=== PATIENT | male | born 1960 | race Caucasian/White ===

== ENCOUNTER 2019-01-17 17:54 | Inpatient (IN) | payer OTHER ==
[~2019-01-17] VITALS: Ht 165.1 cm; Wt 68.7 kg
[~2019-01-17 17:54] MED LIST: SALBUTAMOL INH
[2019-01-17 18:09] VITALS: Ht 165.1 cm; Wt 68.7 kg
--- NOTE | 2019-01-17 18:13 | NUR ---
PT SENT TO LOBBY TO AWAIT ROOM. NO S/S OF DISTRESS. PT IS A/O AMBULATES WITH STEADY GAIT. RESPTIATIONS ARE E/U.
--- NOTE | 2019-01-17 19:09 | NUR ---
PT AAOX4, RESPIRATIONS EVEN AND UNLABORED, NO S/S OF DISTRESS NOTED. PT REPORTS BEING SEEN AT URGENT CARE TODAY AND BEING TOLD TO DUE TO HTN AND BILATERAL LOWER EXTREMITY EDEMA. +2 PITTING EDEMA NOTED TO BILATERAL LOWER EXTREMITIES WITH POSITIVE SENSATION, MOVEMENT AND PEDAL PULSES.
--- NOTE | 2019-01-17 20:15 | NUR ---
PT INSTRUCTED TO GIVE CLEAN CATCH URINE SAMPLE. PT AMBULATED TO AND FROM RESTROOM WITH STEADY GAIT.
[2019-01-17 20:30] LABS: BASOPHIL % 0.9 % (0-2); PLATELET COUNT 283 x10^3mcL (130-400); RED CELL DISTRIBUTION WIDTH 13.4 % (11.5-14.5)
[2019-01-17 20:32] LABS: CALCIUM 8.3 mg/dL (8.5-10.1); CARBON DIOXIDE 28.8 mmol/L (21-32); CHLORIDE SERUM 104 mmol/L (98-107); CREATININE SERUM 1.3 mg/dL (0.7-1.3); GFR1 > 60 mL/min; GLUCOSE SERUM 102 mg/dL (74-106); POTASSIUM SERUM 3.7 mmol/L (3.5-5.1); SODIUM SERUM 139 mmol/L (136-145)
[2019-01-17 20:36] LABS: ALKALINE PHOSPHATASE 70 U/L (46-116); ALT/SGPT 52 U/L (16-63); AST/SGOT 29 U/L (15-37); BILIRUBIN TOTAL 0.5 mg/dL (0.20-1.00); LIPASE 96 IU/L (73-393); TRIGLYCERIDES 98 mg/dL (<150)
[2019-01-17 20:37] LABS: ALBUMIN 2.3 g/dL (3.4-5.0); CHOLESTEROL 289 mg/dL (<200); CHOLESTEROL/HDL RATIO 3.9; HDL CHOLESTEROL 74 mg/dL (40-60); TOTAL PROTEIN, SERUM 5.7 g/dL (6.4-8.2)
[2019-01-17 20:47] LABS: T3 TOTAL 1.08 ng/mL
[2019-01-17 21:01] LABS: microscopic required? YES; urine erythrocyte 3+ (NEGATIVE)
[2019-01-17 21:05] LABS: FREE T4 0.97 ng/dL (0.76-1.46); FREE THYROXINE INDEX 2.2 ug/dL (1.4-4.5); T4(THYROXINE) 6.2 ug/dL (4.7-13.3)
--- NOTE | 2019-01-17 21:13 | NUR ---
PT SITTING UP IN BED, NO S/S OF DISTRESS NOTED, PT TALKING WITH FAMILY AT BEDSIDE. PT DENIES PAIN, DIZZINESS AT THIS TIME.
--- NOTE | 2019-01-17 23:43 | NUR ---
PT SITTING UP IN BED, NO S/S OF DISTRESS NOTED. PT REPORTS PRESSURE IN LOWER EXTREMETIES HAS SUBSIDED. PT DENIES PAIN AT THIS TIME.
[2019-01-18] VITALS (7 sets, daily range): BP systolic 119–159; BP diastolic 81–104
--- NOTE | 2019-01-18 00:53 | NUR ---
REPORT GIVEN TO RIAZ RESTREPO TO ASSUME CARE
--- NOTE | 2019-01-18 01:21 | NUR ---
RECEIVED PT FROM ED VIA NAIDA. ORIENTED PT TO ROOM AND SURROUNDINGS. IV NOTED TO RFA PATENT AND INTACT. TELE 30 PLACED ON PT READING NSR. INSTRUCTED PT ON THE USE OF CALL LIGHT FOR ASSISTANCE. ENDORSED PT TO PRIMARY NURSE LAURO
--- NOTE | 2019-01-18 01:29 | NUR ---
RECEIVED PT VIA HAIDER. A&OX4. ABLE TO FOLLOW COMMANDS. SOMALI SPEAKING BUT DAUGHTER AT BEDSIDE TO TRANSLATE. PERRL. DENIES HEADACHE, SOB, PAIN, CP, N/V, OR ABD PAIN AT THIS TIME. BREATHING E/U. ON ROOM AIR. CLEAR LUNG SOUNDS AUSCULTATED. NO SIGNS OF RESP DISTRESS NOTED. VS = 159/104 (113), 71 HR, 98% O2, 18 RR. ABD IS SOFT AND ROUNDED. ACTIVE BOWEL SOUNDS PRESENT. MOD PULSES TO BUE AND BLE. CAP REFILL <3 SEC TO BUE AND BLE. SKIN IS WARM/DRY TO TOUCH, STERET/BROWN IN COLOR. +1 EDEMA NOTED TO BLE. PIV TO R FOREARM INTACT, PORT PATENT, SALINE LOCKED, DRESSING CDI. SKIN INTACT, NO OPEN WOUNDS NOTED. AMBULATORY AND INDEPENDENT. INSTRUCTED TO USE CALL LIGHT IF NEED OF ASSISTANCE, X3 SIDE RAILS UP, BED IN LOWEST POSITION. WILL RESUME CARE.
--- NOTE | 2019-01-18 02:46 | NUR ---
PT RESTING BUT AROUSABLE AND COMFORTABLE. BREATHING E/U. NO SIGNS OF RESP DISTRESS NOTED. NO ACUTE CHANGES NOTED.
--- NOTE | 2019-01-18 06:11 | NUR ---
PT AWAKE, ALERT, AND ORIENTED X4. ABLE TO FOLLOW COMMANDS. DENIES HEADACHE. BREATHING E/U. NO SIGNS OF RESP DISTRESS NOTED. SKIN WARM/DRY, STREET/BROWN IN COLOR. +1 EDEMA TO BLE REMAINS. CAP REFILL <3 SEC. MOD PULSES TO BUE AND BLE. DENIES SOB, CP, ABD PAIN, N/V. X3 SIDE RAILS UP, CALL LIGHT WITHIN REACH, BED IN LOWEST POSITION. WILL ENDORSE CARE TO ONCOMING RN.
--- NOTE | 2019-01-18 07:10 | NUR ---
RECEIVED PT FROM DAYANA RN. PT AA/OX4. EASILY AROUSABLE TO VERBAL STIMULI. NO S/S OF ACUTE DISTRESS. DENIES SOB AT THIS TIME. LUNG SOUNDS DIMINISHED BLL ON ROOM AIR. RR EVEN/UNLABORED. CHEST EXPANSION SYMMETRICAL. DENIES CHEST PAIN. IV WNL TO RFA, SALINE LOCKED. PATENT AND FLUSHES WELL. DENIES PAIN. CALM/COOPERATIVE. SPEAKS GREEK. SPEECH CLEAR. NO PALMER. NO DIZZINESS. NO N/V. BLE ELEVATED W/ PILLOW. BED IN LOW POSITION. CALL LIGHT WITHIN REACH. INSTRUCTED TO USE CALL LIGHT TO CALL FOR ASSISTANCE PRN. VERBALIZED UNDERSTANDING. SIDE RAILS UP X2. AT BEDSIDE. WILL CONTINUE TO MONITOR.
[2019-01-18 10:20] LABS: CREATININE UR 114.7 mg/dL
--- NOTE | 2019-01-18 12:39 | NUR ---
24 HOUR URINE CATCH STARTED PER PHYSICIAN ORDER. PT EDUCATED ON PURPOSE AND COLLECTING URINE FOR 24HOURS. FAMILY AT BEDSIDE. PT AND FAMILY MEMBER VERBALIZED UNDERSTANDING. PT AA/OX4. NO S/S OF ACUTE DISTRESS. NO CHEST PAIN. NO SOB ON ROOM AIR. CALM/COOPERATIVE. IV WNL, SALINE LOCKED. BED IN LOW POSITION. CALL LIGHT WITHIN REACH. WILL CONTINUE TO MONITOR.
--- NOTE | 2019-01-18 17:30 | NUR ---
24 HOUR PROTEIN/CREA URINE CATCH STARTED
--- NOTE | 2019-01-18 18:52 | NUR ---
PT LAYING IN BED. AA/OX4. NO S/S OF ACUTE DISTRESS. DENIES PAIN. DENIES SOB ON ROOM AIR. 24HR URINE CATCH IN PLACE, PT VERBALIZED UNDERSTANDING. NO CHEST PAIN. CALM/COOPERATIVE. IV WNL, SALINE LOCKED. BED IN LOW POSITION. CALL LIGHT WITHIN REACH. WILL CONTINUE TO MONITOR.
--- NOTE | 2019-01-18 19:16 | NUR ---
AWAKE AND ALERT, ORIENTED TO NAME, PLACE, TIME AND SITUATION. SPEECH CLEAR AND APPROPRIATE. BREATHING EVEN AND UNLABORED ON ROOM AIR, DENIES HAVING SHORTNESS OF BREATH AT THIS TIME. LUNG SOUNDS DIMINISHED TO BASES. SINUS RHYTHM ON TELE. ON 24 HOUR COLLECTION. PT VERBALIZED UNDERSTANDING TO VOID TO URINAL AND CALL NURSE. DENIES HAVING PAIN.
--- NOTE | 2019-01-18 23:44 | NUR ---
EYES CLOSED, BREATHING UNLABORED, EASILY AWAKENED. DUE CLONIDINE TABLET ADMINISTERED PO.
--- NOTE | 2019-01-19 00:33 | NUR ---
EYES CLOSED, BREATHING UNLABORED ON ROOM AIR. CALL LIGHT WITHIN EASY REACH. AT BEDSIDE, STAYING THE NIGHT, OK WITH STELLA GLASS.
--- NOTE | 2019-01-19 06:05 | NUR ---
SLEPT THROUGH MOST OF SHIFT. VOIDING WELL. BREATHING EVEN AND UNLABORED ON ROOM AIR. 24 URINE COLLECTON ONGOING. SALINE LOCK FREE FROM ERYTHEMA OR SWELLING. CALL LIGHT WITHIN EASY REACH.
[2019-01-19 06:12] VITALS: BP 130/83
[2019-01-19 06:42] LABS: CARBON DIOXIDE 28.1 mmol/L (21-32); CREATININE SERUM 1.4 mg/dL (0.7-1.3); POTASSIUM SERUM 3.3 mmol/L (3.5-5.1)
[2019-01-19 06:52] LABS: BASOPHIL % 1.4 % (0-2); PLATELET COUNT 229 x10^3mcL (130-400); RED CELL DISTRIBUTION WIDTH 12.8 % (11.5-14.5)
--- NOTE | 2019-01-19 07:00 | NUR ---
RECEIVED BEDSIDE REPORT FROM FURNITURE SERVICER NURSE AT THIS TIME. PATIENT RESTING COMFORTABLY IN BED. NO APPARENT DISTRESS OR DISCOMFORT NOTED. BREATHING EVEN AND UNLABORED. PATIENT DENIES SHORTNESS OF BREATH. PATIENT DENIES CHEST PAIN AT THIS TIME. IV PATENT AND INTACT. ALL QUESTIONS AND CONCERNS ADDRESSED. ALL NEEDS ATTENDED TO. WILL CONTINUE TO MONITOR
--- NOTE | 2019-01-19 07:09 | NUR ---
AWAKE AND ALERT, IN NO ACUTE DISTRESS. ENDORSED TO NURSE ANDREI
[2019-01-19 08:11] LABS: microalbumin:creatinine ratio 8345.7 (0.0-30.0)
[2019-01-19 08:17] VITALS: BP 137/94
--- NOTE | 2019-01-19 10:18 | NUR ---
ALL MORNING MEDICATIONS ADMINISTERED. PATIENT TOLERATED MEDICATION WELL. NO ADVERSE EFFECTS NOTED. ALL NEEDS ATTENDED TO. WILL CONTINUE TO MONITOR
--- NOTE | 2019-01-19 10:20 | NUR ---
PAGED DR CUENCA AT THIS TIME TO REPORT POTASSIUM OF 3.3. AWAITING CALL BACK. WILL CONTINUE TO MONITOR
--- NOTE | 2019-01-19 12:15 | NUR ---
NOTIFIED DR CUENCA PATIENT POTASSIUM 3.3. AWIAITNG ORDERS AT THIS TIME. WILL PROCEED ORDERED. WILL CONTINUE TO MONITOR
[2019-01-19] MEDS ORDERED: PROL PO (13:08)
[2019-01-19 13:15] VITALS: BP 136/88
[2019-01-19 17:20] VITALS: BP 135/85
[2019-01-19 18:46] LABS: CREATININE UR 68.2 mg/dL
--- NOTE | 2019-01-19 19:01 | NUR ---
PATIENT STABLE TO BE DISCHARGED TO HOME. DISCHARGE INSTRUCTIONS GIVEN WELL EDUCATION. INSTRUCTED PATIENT ABOUT FOLLOW UP APPOINTMENT. PATIENT VERBALIZES UNDERSTANDING. TELEPHONE NUMBER PROVIDED FOR INSPECTOR PENETRANT. IV REMOVED WITH CATH INTACT. ID BANDS REMOVED. TELE MONITOR REMOVED AND RETURNED TO [employer] BUTTON PASTER. ALL BELONGINGS WITH PATIENT. ALL QUESTIONS AND CONCERNS ADDRESSED. ALL NEEDS ATTENDED TO. PATIENT ESCORTED DOWN TO THE LOBBY BY PANKAJ AT THIS TIME
[2019-01-20 13:05] LABS: COMPLEMENT C3 113 mg/dL (82-167); COMPLEMENT C4 37 mg/dL (14-44)
[2019-01-22 13:05] LABS: cnab c-anca <1:20 titer (Neg:<1:20); cnab p-anca <1:20 titer (Neg:<1:20)
== END 2019-01-19 19:00 | disposition home or self-care (01) | DRG 304 ==
LOC: ED 17:54 → DU 01-18 00:10
PROVIDERS: Internal Medicine Nephrology; Internal Medicine Pulmonary Disease; Specialist; ADMIT Internal Medicine Nephrology
DX: I16.0 Hypertensive urgency (principal); J96.00 Acute respiratory failure, unspecified whether with hypoxia or hypercapnia; N04.9 Nephrotic syndrome with unspecified morphologic changes; R31.29 Other microscopic hematuria; J45.909 Unspecified asthma, uncomplicated; Z68.26 Body mass index [BMI] 26.0-26.9, adult
CPT/HCPCS: 83520; 83880; 84439; 86256; G0378; J1940; J3490; Q0092